=== PATIENT | female | born 1940 | race Caucasian/White ===

== ENCOUNTER 2019-02-21 13:05 | Outpatient (RCR) | payer MEDICARE, OTHER, SELFPAY | END 2019-02-22 00:01 | LOC: SR3 13:05 | PROVIDERS: Family Provider Nurse Practitioner Family; Visit Provider Internal Medicine | DX: I63.9 Cerebral infarction, unspecified (principal) | CPT/HCPCS: 97161; 97165; 97530 ==

== ENCOUNTER 2019-02-23 12:41 | Outpatient (RCR) | payer MEDICARE, SELFPAY | END 2019-03-25 23:59 | disposition home or self-care (01) | LOC: SR3 12:41 | PROVIDERS: Family Provider Nurse Practitioner Family; PCP Nurse Practitioner Family; Visit Provider Internal Medicine | DX: R26.89 Other abnormalities of gait and mobility (principal) | CPT/HCPCS: 92507; 92523; 97032; 97110; 97112; 97116; 97164 ==

== ENCOUNTER 2019-03-26 06:00 | Outpatient (RCR) | payer MEDICARE, SELFPAY | END 2019-04-23 23:59 | disposition home or self-care (01) | LOC: SR3 06:00 | PROVIDERS: Family Provider Nurse Practitioner Family; PCP Nurse Practitioner Family; Visit Provider Internal Medicine | DX: I63.9 Cerebral infarction, unspecified (principal); R26.89 Other abnormalities of gait and mobility | CPT/HCPCS: 92507; 97032; 97110; 97112; 97116 ==

== ENCOUNTER 2019-04-24 06:00 | Outpatient (RCR) | payer MEDICARE, OTHER, SELFPAY | END 2019-05-24 23:59 | disposition home or self-care (01) | LOC: SR3 06:00 | PROVIDERS: Family Provider Nurse Practitioner Family; PCP Nurse Practitioner Family; Visit Provider Internal Medicine | DX: I63.9 Cerebral infarction, unspecified (principal) | CPT/HCPCS: 92507 ==

== ENCOUNTER 2019-05-25 06:00 | Outpatient (RCR) | payer MEDICARE, SELFPAY | END 2019-06-23 23:59 | disposition home or self-care (01) | LOC: GST 06:00 | PROVIDERS: Family Provider Nurse Practitioner Family; PCP Nurse Practitioner Family; Visit Provider Internal Medicine | DX: I63.9 Cerebral infarction, unspecified (principal); R47.02 Dysphasia | CPT/HCPCS: 92507 ==

== ENCOUNTER 2019-06-14 09:03 | Outpatient (CLI) | payer OTHER, SELFPAY ==
--- NOTE | 2019-06-14 09:14 | MR_ITS ---
WS: [id number] MRI CERVICAL SPINE HISTORY: CERVICALGIA COMPARISON: None available. Posterior cervical alignment is normal with increase in the cervical lordosis. No marrow edema or fra cture. Disc desiccation is mild throughout the cervical spine. Signal within the cord is normal. Volume loss in the posterior fossa. Ventricles are dilated. Craniocervical junction, C1 and C2 relationship, odontoid process and soft tissues are normal. C2-C3: Normal. C3-C4: Normal. C4-C5: Mild osteophytic ridging and facet arthritis. Small foraminal osteophytes resulting in mild bi lateral foraminal stenosis. There is edema in the LEFT facet joint and periarticular soft tissues. C5-C6: Mild osteophytic ridging and facet arthritis. No central stenosis. C6-C7: Facet joint arthritis and mild foraminal narrowing. No significant stenosis. C7-T1: No significant stenosis. Paraspinal soft tissue are normal. MR/MR cervical spin wo con* [id number] IMPRESSION: 1. Moderate increase in cervical lordosis. 2. Mild multilevel spondylosis and degenerative disc disease. 3. Bilateral foraminal stenosis at C4-5 and C6-7. 4. Small amount of edema in the LEFT facet joint at C4-5 is probably due to [place] inflammatory arthritis and synovitis.
== END 2019-06-14 09:04 | disposition home or self-care (01) ==
LOC: RADWPI 09:09
PROVIDERS: Family Provider Nurse Practitioner Family; PCP Nurse Practitioner Family; Visit Provider Nurse Practitioner
DX: M48.02 Spinal stenosis, cervical region (principal); M47.812 Spondylosis without myelopathy or radiculopathy, cervical region; M50.30 Other cervical disc degeneration, unspecified cervical region; R60.9 Edema, unspecified
CPT/HCPCS: 72141

== ENCOUNTER → 2019-06-20 09:34 | Outpatient (BNVA) | payer OTHER, SELFPAY | PROVIDERS: Family Provider Nurse Practitioner Family; PCP Nurse Practitioner Family; Referring Provider Nurse Practitioner; Visit Provider Nurse Practitioner | DX: Z86.73 Personal history of transient ischemic attack (TIA), and cerebral infarction without residual deficits (principal); R13.10 Dysphagia, unspecified; M54.2 Cervicalgia | CPT/HCPCS: 99205; 99999 ==

== ENCOUNTER → 2019-06-22 09:30 | Outpatient (BNVA) | payer OTHER, SELFPAY | PROVIDERS: Family Provider Nurse Practitioner Family; PCP Nurse Practitioner Family; Referring Provider Nurse Practitioner; Visit Provider Nurse Practitioner | DX: I63.9 Cerebral infarction, unspecified (principal); M54.2 Cervicalgia; R13.10 Dysphagia, unspecified | CPT/HCPCS: 80061; 82607; 84443; 85025 ==

== ENCOUNTER 2019-06-24 06:00 | Outpatient (RCR) | payer MEDICARE, SELFPAY | END 2019-07-24 23:59 | disposition home or self-care (01) | LOC: GST 06:00 | PROVIDERS: Family Provider Nurse Practitioner Family; PCP Nurse Practitioner Family; Referring Provider Nurse Practitioner; Visit Provider Nurse Practitioner | DX: R47.02 Dysphasia (principal) | CPT/HCPCS: 92507; 92523 ==

== ENCOUNTER 2019-06-29 10:21 | Outpatient (RCR) | payer MEDICARE, SELFPAY | END 2019-07-24 23:59 | disposition home or self-care (01) | LOC: SPT 10:21 | PROVIDERS: Family Provider Nurse Practitioner Family; PCP Nurse Practitioner; Referring Provider Nurse Practitioner; Visit Provider Nurse Practitioner | DX: I63.9 Cerebral infarction, unspecified (principal) | CPT/HCPCS: 97110; 97162; 97530 ==

== ENCOUNTER 2019-07-13 13:29 | Outpatient (CLI) | payer MEDICARE, SELFPAY ==
--- NOTE | 2019-07-13 14:15 | USCV_ITS ---
Sara Cortez Age: 78 Gender: F : 1940 Exam Date: 07/13/2019 13:58 Ordering Phys: Noah Xiao MSN AGACNP-BC Technologist: Martha Suero Exam Location: [facility] – [place] Indication: CVA Risk Factors: Unknown Previous Vascular Surgery: PRIOR CVA Right Brachial BP: / Left Brachial BP: / Right Left Velocity (cm/s) Spectral Plaque Velocity (cm/s) Spectral Plaque Syst/Diast Broadening Syst/Diast Broadening 88.20/ 19.80 Prox CCA 102.90/ 15.80 100.30/23.20 Mid CCA 47.00 / 10.30 44.00/ 9.90 Distal CCA 55.00 / 10.90 39.30/ 13.90 Prox ICA 52.10 / 12.60 48.70/ 14.10 Mid ICA 62.50 / 18.30 80.70/ 24.70 Distal ICA 52.40 / 17.50 105.10 ECA 68.20 0.80 ICA/CCA 1.33 Antegrade Vertebral Antegrade 35.60/ 9.40 cm/s 29.30/ 8.50 cm/s Tri Subclavian Tri 72.00 85.70 CONCLUSIONS Right ICA stenosis <50%. Mild atheromatous plaque right carotid bulb/ICA. Left ICA stenosis <50%. Mild atheromatous plaque left carotid bulb/ICA. Normal antegrade Doppler flow noted in the right vertebral artery. Normal antegrade Doppler flow noted in the left vertebral artery. Brayan De La O MD (Electronically Signed) Final Date: 14 Jul 2019 11:54 S
--- NOTE | 2019-07-13 15:00 | USCV_ITS ---
Sara Cortez Age: 78 Gender: F : 1940 Exam Date: 07/13/2019 13:43 Ordering Phys: Noah XiaoP MSN AGACNP-BC Technologist: Martha Suero [place] [facility] [place]: CVA BP: 121 / 67 HR: 82 Rhythm: Sinus Technical Quality: Adequate MEASUREMENTS (Male / Female) Normal Values 2D ECHO LV Diastolic Diameter PLAX 3.7 cm 4.2 - 5.9 / 3.9 - 5.3 cm LV Systolic Diameter PLAX 2.9 cm LV Chamber Size 3.1 cm IVS Diastolic Thickness 1.2 cm 0.6 - 1.0 / 0.6 - 0.9 cm IVS Systolic Thickness 1.6 cm LVPW Diastolic Thickness 1.1 cm 0.6 - 1.0 / 0.6 - 0.9 cm LVPW Systolic Thickness 1.4 cm RV Chamber Size 2.3 cm LVOT Diameter 2.1 cm LV Ejection Fraction 2D Teich 45.4 % LV Ejection Fraction MOD 2C 25.7 % LV Ejection Fraction 2C AL 24.5 % LA Diameter 2.9 cm LA Width 2.8 cm LA Height 4.4 cm RA Width 3.0 cm RA Height 3.5 cm Aorta at Sinotubular Diameter 3.7 cm M-MODE LV Diastolic Diameter MM 3.3 cm 4.2 - 5.9 / 3.9 - 5.3 cm LV Systolic Diameter MM 2.5 cm LV Ejection Fraction MM Teich 45.9 % IVS Diastolic Thickness MM 0.9 cm 0.6 - 1.0 / 0.6 - 0.9 cm IVS Systolic Thickness MM 1.0 cm LVPW Diastolic Thickness MM 1.0 cm 0.6 - 1.0 / 0.6 - 0.9 cm LVPW Systolic Thickness MM 1.3 cm RV Diastolic Diameter MM 1.2 cm Aortic Annulus Diameter 3.5 cm LA Ao Ratio MM 0.8 MV E Point Septal Separation 0.6 cm DOPPLER AV Peak Velocity 104.0 cm/s LVOT Peak Velocity 88.0 cm/s AV Area Cont Eq vti 3.1 cm squared AV Area Cont Eq pk 2.9 cm squared MV Area PHT 4.5 cm squared Mitral E to A Ratio 0.7 MV E' Velocity 6.0 cm/s Mitral E to MV E' Ratio 8.2 Mitral E to LV E' Lateral Ratio 9.4 Mitral E to LV E' Septal Ratio 7.4 TR Peak Velocity 189.9 cm/s TR Peak Gradient 14.4 mmHg TR Mean Velocity 121.9 cm/s TR Mean Gradient 7.0 mmHg TR Velocity Time Integral 59.4 cm TV Peak E Velocity 54.0 cm/s Right Atrial Pressure 3.0 mmHg Pulmonary Artery Systolic Pressu 17.4 mmHg PV Peak Velocity 55.0 cm/s RV Acceleration Time 0.2 s RV Ejection Time 0.3 s RV AcT/ET 0.5 FINDINGS Left Ventricle Normal left ventricular cavity size. Normal left ventricular systolic function. No regional wall motion abnormalities. Left ventricular ejection fraction is estimated at 60 %. Grade I/IV diastolic dysfunction (abnormal relaxation filling pattern), normal to mildly elevated filling pressures. Right Ventricle The right ventricle is normal in size and function. Right Atrium The right atrium is normal in size. Left Atrium The left atrium is normal in size. Mitral Valve Structurally normal mitral valve without significant stenosis or prolapse. There is no mitral regurgitation. Aortic Valve Structurally normal aortic valve without significant sclerosis or stenosis. There is no aortic regurgitation. Tricuspid Valve Structurally normal tricuspid valve without significant stenosis or regurgitation. Pulmonary artery systolic pressure is normal. Pulmonic Valve Structurally normal pulmonic valve without significant stenosis. There is no pulmonic regurgitation. Pericardium Normal pericardium without effusion. Aorta Normal ascending aorta dimension. CONCLUSIONS 1-Normal left ventricular cavity size. Normal left ventricular systolic function. No regional wall motion abnormalities. Left ventricular ejection fraction is estimated at 60 %. Grade I/IV diastolic dysfunction (abnormal relaxation filling pattern), normal to mildly elevated filling pressures. 2-No significant valve abnormalities. 3-There is no pericardial effusion. 4-Pulmonary artery systolic pressure is within normal limits. 5-Right atrial pressure is around 5 mm of mercury. 6-There are no prior echocardiogram studies to compare. Albaro Gordillo MD (Electronically Signed) Final Date: 13 Jul 2019 18:38 S
== END 2019-07-13 13:30 | disposition home or self-care (01) ==
LOC: RAD 13:30
PROVIDERS: PCP Nurse Practitioner; Visit Provider Nurse Practitioner
DX: Z86.73 Personal history of transient ischemic attack (TIA), and cerebral infarction without residual deficits (principal); I65.23 Occlusion and stenosis of bilateral carotid arteries
CPT/HCPCS: 93306; 93880

== ENCOUNTER 2019-07-25 06:00 | Outpatient (RCR) | payer MEDICARE, SELFPAY | END 2019-08-23 23:59 | disposition home or self-care (01) | LOC: SPT 06:00 | PROVIDERS: PCP Nurse Practitioner; Visit Provider Nurse Practitioner | DX: R47.02 Dysphasia (principal) | CPT/HCPCS: 97110; 97530 ==

== ENCOUNTER 2019-07-25 06:00 | Outpatient (RCR) | payer MEDICARE, SELFPAY | END 2019-08-23 23:59 | disposition home or self-care (01) | LOC: GST 06:00 | PROVIDERS: PCP Nurse Practitioner; Visit Provider Nurse Practitioner | DX: R47.02 Dysphasia (principal) | CPT/HCPCS: 92507 ==

== ENCOUNTER 2019-08-24 04:54 | Outpatient (RCR) | payer MEDICARE, SELFPAY | END 2019-09-23 23:59 | disposition home or self-care (01) | LOC: GST 04:54 | PROVIDERS: PCP Nurse Practitioner; Visit Provider Nurse Practitioner | DX: I63.9 Cerebral infarction, unspecified (principal); R47.02 Dysphasia | CPT/HCPCS: 92507 ==

== ENCOUNTER → 2020-01-09 09:26 | Outpatient (BNVA) | payer MEDICARE, SELFPAY | PROVIDERS: PCP Nurse Practitioner; Visit Provider Nurse Practitioner Family | DX: E78.5 Hyperlipidemia, unspecified (principal) | CPT/HCPCS: 80061 ==

== ENCOUNTER → 2020-03-28 13:43 | Outpatient (BNVA) | payer MEDICARE, SELFPAY | PROVIDERS: PCP Nurse Practitioner; Visit Provider Nurse Practitioner Family | DX: R42 Dizziness and giddiness (principal) | CPT/HCPCS: 36416; 82962 ==

== ENCOUNTER → 2020-04-20 09:05 | Outpatient (BNVA) | payer MEDICARE, SELFPAY | PROVIDERS: PCP Nurse Practitioner; Visit Provider Internal Medicine Cardiovascular Disease | DX: E78.5 Hyperlipidemia, unspecified (principal) | CPT/HCPCS: 80061 ==

== ENCOUNTER → 2020-05-24 12:05 | Outpatient (BNVA) | payer MEDICARE, SELFPAY | PROVIDERS: PCP Nurse Practitioner; Referring Provider Nurse Practitioner; Visit Provider Specialist | DX: G24.3 Spasmodic torticollis (principal) | CPT/HCPCS: 64616; 99213; J0585 ==

== ENCOUNTER → 2020-06-07 11:18 | Outpatient (BNVA) | payer MEDICARE, SELFPAY | PROVIDERS: PCP Nurse Practitioner; Referring Provider Nurse Practitioner; Visit Provider Specialist | DX: Z96.649 Presence of unspecified artificial hip joint (principal); Z96.641 Presence of right artificial hip joint; M16.12 Unilateral primary osteoarthritis, left hip | CPT/HCPCS: 73522; 73523 ==

== ENCOUNTER → 2020-07-12 00:01 | Outpatient (BNVA) | payer MEDICARE, SELFPAY | PROVIDERS: PCP Nurse Practitioner; Visit Provider Nurse Practitioner Family | DX: E03.9 Hypothyroidism, unspecified (principal); I10 Essential (primary) hypertension; Z68.26 Body mass index [BMI] 26.0-26.9, adult | CPT/HCPCS: 80053; 84443 ==

== ENCOUNTER → 2020-08-16 11:16 | Outpatient (BNVA) | payer MEDICARE, SELFPAY | PROVIDERS: PCP Nurse Practitioner; Visit Provider Specialist | DX: G24.3 Spasmodic torticollis (principal); M54.2 Cervicalgia; R26.9 Unspecified abnormalities of gait and mobility | CPT/HCPCS: 64616; 99214; J0585 ==

== ENCOUNTER 2020-09-05 10:51 | Outpatient (CLI) | payer MEDICARE, SELFPAY ==
--- NOTE | 2020-09-05 11:45 | MR_ITS ---
WS: [id number] MRI CERVICAL SPINE NONCONTRAST TECHNIQUE: Sagittal T1, T2 and STIR imaging. Axial T2, gradient, and fiesta imaging. CLINICAL INFORMATION: M54.2 - Cervicalgia COMPARISON: June 14, 2019 FINDINGS: Slight exaggeration the normal cervical lordosis. Mild cervical curve. Cord signal is normal. No high -grade central canal narrowing. C2-C3: Moderate facet arthropathy. Spinal canal is patent. Mild right and no significant left foramin al narrowing. C3-C4: Moderate facet arthropathy. Mild bilateral bony foraminal narrowing. Spinal canal is patent. C4-C5: Slight anterolisthesis. Moderate facet arthropathy. Mild to moderate bilateral bony foraminal narrowing. Spinal canal is patent. C5-C6: Mild osteophytic ridging. Mild left and no significant right foraminal narrowing. Moderate fac et arthropathy. C6-C7: Mild disc bulging and osteophytic ridging. Mild bilateral bony foraminal narrowing. Spinal can al is patent. C7-T1: Grade 1 anterolisthesis C7 on T1. Mild right greater than left bony foraminal narrowing. Spina l canal is patent. Visualized upper thoracic cord is normal. Previously described edema within the left C4-5 facets appe ars improved. Visualized brain stem structures: Normal. Prevertebral soft tissues: Normal. MR/MR cervical spin wo con* [id number] IMPRESSION: 1. Improvement in the previously described edema within the left C4-5 facets. 2. Otherwise no significant interval changes. 3. Slight anterolisthesis C4 on C5 and C7 on T1 is unchanged. 4. No significant central canal stenosis. Cord signal is normal. 5. Multilevel mild to moderate bony foraminal narrowing more prominent at bila teral C4-C5, left C5-C6, bilateral C6-7, and right C7-T1. 6. Multilevel moderate facet arthropathy throughout the cervical spine.
== END 2020-09-05 10:52 | disposition home or self-care (01) ==
LOC: RADSHAW 10:57
PROVIDERS: PCP Nurse Practitioner; Visit Provider Specialist
DX: M54.2 Cervicalgia (principal); M47.812 Spondylosis without myelopathy or radiculopathy, cervical region; R60.0 Localized edema
CPT/HCPCS: 72141

== ENCOUNTER 2020-09-12 06:00 | Outpatient (RCR) | payer MEDICARE, SELFPAY | END 2020-09-22 23:59 | disposition home or self-care (01) | LOC: GPT 06:00 | PROVIDERS: PCP Nurse Practitioner; Referring Provider Nurse Practitioner; Visit Provider Nurse Practitioner | DX: R26.89 Other abnormalities of gait and mobility (principal) | CPT/HCPCS: 97032; 97110; 97161; 97530; G0283 ==

== ENCOUNTER 2020-09-23 06:00 | Outpatient (RCR) | payer MEDICARE, SELFPAY | END 2020-10-23 23:59 | disposition home or self-care (01) | LOC: GPT 06:00 | PROVIDERS: PCP Nurse Practitioner; Referring Provider Nurse Practitioner; Visit Provider Nurse Practitioner | DX: R53.1 Weakness (principal); R26.89 Other abnormalities of gait and mobility | CPT/HCPCS: 97110; 97112; 97530 ==

== ENCOUNTER → 2020-10-30 09:18 | Outpatient (BNVA) | payer MEDICARE, SELFPAY | PROVIDERS: PCP Nurse Practitioner; Visit Provider Internal Medicine Cardiovascular Disease | DX: E78.5 Hyperlipidemia, unspecified (principal) | CPT/HCPCS: 80061 ==

== ENCOUNTER → 2020-11-15 10:22 | Outpatient (BNVA) | payer MEDICARE, SELFPAY | PROVIDERS: PCP Nurse Practitioner; Visit Provider Specialist | DX: G24.3 Spasmodic torticollis (principal); M54.2 Cervicalgia; R26.9 Unspecified abnormalities of gait and mobility; I69.398 Other sequelae of cerebral infarction; Z87.891 Personal history of nicotine dependence | CPT/HCPCS: 64616; 96116; 99213; J0585 ==

== ENCOUNTER → 2021-02-07 11:28 | Outpatient (BNVA) | payer MEDICARE, SELFPAY | PROVIDERS: PCP Nurse Practitioner; Visit Provider Specialist | DX: G24.3 Spasmodic torticollis (principal) | CPT/HCPCS: 64616; J0585 ==

== ENCOUNTER 2021-02-26 10:31 | Outpatient (CLI) | payer MEDICARE, SELFPAY ==
--- NOTE | 2021-02-26 11:30 | FL_ITS ---
WS: [id number] MODIFIED BARIUM SWALLOW HISTORY: R13.10 - Dysphagia, unspecified FLUOROSCOPY TIME: 1.8 minutes. Modified barium swallow was performed by the speech pathologist. Fluoroscopy was provided with the pa tient in a lateral projection. Multiple food consistencies were provided. Patient is held in marked forward flexion. During swallowing patient was able to extend the chin. The re are numerous episodes of laryngeal penetration and a small amount of aspiration especially with th e thinner liquids. Spontaneous cough was elicited which did clear some of the barium. There is also c oating within the vallecula and piriform sinuses after swallowing. No barium tablet was attempted nor solid food. FL/FL barium swallow modifd [id number] IMPRESSION: 1. Patient at high risk for laryngeal penetration and aspiration. Several epis odes of minor aspiration noted during this examination with poor clearing of ba rium. Please see speech therapist report also for recommendations.
== END 2021-02-26 10:32 | disposition home or self-care (01) ==
LOC: RAD 10:38
PROVIDERS: PCP Nurse Practitioner; Visit Provider Specialist
DX: R13.10 Dysphagia, unspecified (principal); K22.2 Esophageal obstruction; T17.308A Unspecified foreign body in larynx causing other injury, initial encounter; X58.XXXA Exposure to other specified factors, initial encounter
CPT/HCPCS: 74230; 92611

== ENCOUNTER 2021-08-12 06:00 | Outpatient (RCR) | payer MEDICARE, SELFPAY | END 2021-08-22 23:59 | disposition home or self-care (01) | LOC: GPT 06:00 | PROVIDERS: PCP Nurse Practitioner; Referring Provider Physician Assistant; Visit Provider Physician Assistant | DX: Z47.89 Encounter for other orthopedic aftercare (principal) | CPT/HCPCS: 97110; 97162 ==

== ENCOUNTER 2021-08-23 06:00 | Outpatient (RCR) | payer MEDICARE, SELFPAY | END 2021-09-22 23:59 | disposition home or self-care (01) | LOC: GPT 06:00 | PROVIDERS: PCP Nurse Practitioner; Referring Provider Physician Assistant; Visit Provider Physician Assistant | DX: R53.1 Weakness (principal) | CPT/HCPCS: 97110; 97112; 97530 ==

== ENCOUNTER 2021-09-23 06:00 | Outpatient (RCR) | payer MEDICARE, SELFPAY | END 2021-10-03 23:59 | disposition home or self-care (01) | LOC: GPT 06:00 | PROVIDERS: PCP Nurse Practitioner; Referring Provider Physician Assistant; Visit Provider Physician Assistant | DX: Z96.642 Presence of left artificial hip joint (principal) | CPT/HCPCS: 97110; 97112; 97164; 97535 ==

== ENCOUNTER 2022-05-05 06:00 | Outpatient (RCR) | payer MEDICARE, SELFPAY | END 2022-05-23 10:56 | disposition home or self-care (01) | LOC: GPT 06:00 | PROVIDERS: PCP Nurse Practitioner; Visit Provider Orthopaedic Surgery | DX: Z47.89 Encounter for other orthopedic aftercare (principal) | CPT/HCPCS: 97110; 97112; 97140; 97161; 97530; 97535 ==

== ENCOUNTER → 2022-06-09 10:04 | Outpatient (BNVA) | payer MEDICARE, SELFPAY | PROVIDERS: PCP Nurse Practitioner; Visit Provider Podiatrist Foot & Ankle Surgery | DX: I73.9 Peripheral vascular disease, unspecified (principal); Q82.8 Other specified congenital malformations of skin; M20.41 Other hammer toe(s) (acquired), right foot; M20.42 Other hammer toe(s) (acquired), left foot | CPT/HCPCS: 17110; 99203 ==

== ENCOUNTER 2022-06-23 06:00 | Outpatient (RCR) | payer MEDICARE, SELFPAY | END 2022-07-23 23:59 | disposition home or self-care (01) | LOC: GPT 06:00 | PROVIDERS: Visit Provider Physician Assistant | DX: M25.559 Pain in unspecified hip (principal) | CPT/HCPCS: 97110; 97140; 97161; 97530; 97535 ==

== ENCOUNTER → 2022-07-07 12:48 | Outpatient (BNVA) | payer MEDICARE, SELFPAY | PROVIDERS: Visit Provider Podiatrist Foot & Ankle Surgery | DX: M20.41 Other hammer toe(s) (acquired), right foot (principal); M20.42 Other hammer toe(s) (acquired), left foot; Q82.8 Other specified congenital malformations of skin | CPT/HCPCS: 99213 ==

== ENCOUNTER 2022-08-03 07:43 | Outpatient (RCR) | payer MEDICARE, SELFPAY | END 2022-08-22 23:59 | disposition home or self-care (01) | LOC: GPT 07:43 | PROVIDERS: Visit Provider Physician Assistant | DX: M25.559 Pain in unspecified hip (principal) | CPT/HCPCS: 97110; 97140; 97164; 97530; 97535 ==

== ENCOUNTER 2022-08-23 06:00 | Outpatient (RCR) | payer MEDICARE, SELFPAY | END 2022-09-18 23:59 | disposition home or self-care (01) | LOC: GPT 06:00 | PROVIDERS: Visit Provider Physician Assistant | DX: M25.559 Pain in unspecified hip (principal) | CPT/HCPCS: 97110; 97112; 97140; 97530 ==

== ENCOUNTER → 2023-02-02 14:01 | Outpatient (BNVA) | payer MEDICARE, SELFPAY | PROVIDERS: Visit Provider Podiatrist Foot & Ankle Surgery | DX: L60.3 Nail dystrophy (principal); Q82.8 Other specified congenital malformations of skin; I73.9 Peripheral vascular disease, unspecified | CPT/HCPCS: 11721; 17110 ==

== ENCOUNTER → 2023-02-12 14:27 | Outpatient (BNVA) | payer MEDICARE, SELFPAY | PROVIDERS: PCP Nurse Practitioner; Visit Provider Podiatrist Foot & Ankle Surgery | DX: L03.116 Cellulitis of left lower limb (principal) | CPT/HCPCS: 99213 ==

== ENCOUNTER → 2023-05-06 12:39 | Outpatient (BNVA) | payer MEDICARE, SELFPAY | PROVIDERS: PCP Nurse Practitioner; Visit Provider Podiatrist Foot & Ankle Surgery | DX: L60.8 Other nail disorders (principal); L60.3 Nail dystrophy; I73.9 Peripheral vascular disease, unspecified; M21.611 Bunion of right foot; M21.612 Bunion of left foot; M79.671 Pain in right foot; M79.672 Pain in left foot | CPT/HCPCS: 11721; 99213 ==

== ENCOUNTER → 2023-07-14 12:28 | Outpatient (BNVA) | payer MEDICARE, SELFPAY | PROVIDERS: PCP Nurse Practitioner; Visit Provider Podiatrist Foot & Ankle Surgery | DX: L60.8 Other nail disorders (principal); L60.3 Nail dystrophy; I73.9 Peripheral vascular disease, unspecified | CPT/HCPCS: 11721 ==

== ENCOUNTER → 2023-11-03 12:30 | Outpatient (BNVA) | payer MEDICARE, SELFPAY | PROVIDERS: PCP Nurse Practitioner; Visit Provider Podiatrist Foot & Ankle Surgery | DX: L60.8 Other nail disorders (principal); L60.3 Nail dystrophy; I73.9 Peripheral vascular disease, unspecified | CPT/HCPCS: 11721 ==

== ENCOUNTER → 2024-01-05 12:36 | Outpatient (BNVA) | payer MEDICARE, SELFPAY | PROVIDERS: PCP Nurse Practitioner; Visit Provider Podiatrist Foot & Ankle Surgery | DX: L60.8 Other nail disorders (principal); L60.3 Nail dystrophy; I73.9 Peripheral vascular disease, unspecified; L84 Corns and callosities | CPT/HCPCS: 11056; 11721 ==

== ENCOUNTER → 2024-03-08 12:30 | Outpatient (BNVA) | payer MEDICARE, SELFPAY | PROVIDERS: PCP Nurse Practitioner; Visit Provider Podiatrist Foot & Ankle Surgery | DX: L60.8 Other nail disorders (principal); L60.3 Nail dystrophy; I73.9 Peripheral vascular disease, unspecified; L84 Corns and callosities | CPT/HCPCS: 11056; 11721 ==

== ENCOUNTER → 2024-05-10 12:31 | Outpatient (BNVA) | payer MEDICARE, SELFPAY | PROVIDERS: PCP Nurse Practitioner; Visit Provider Podiatrist Foot & Ankle Surgery | DX: I73.9 Peripheral vascular disease, unspecified (principal); L60.8 Other nail disorders; L84 Corns and callosities; L60.3 Nail dystrophy | CPT/HCPCS: 11056; 11721 ==

== ENCOUNTER 2025-02-13 13:47 | Outpatient (CLI) | payer MEDICARE, SELFPAY ==
--- NOTE | 2025-02-13 14:00 | CTR_ITS ---
PROCEDURE INFORMATION: Exam: CT Neck Without Contrast Exam date and time: 02/13/2025 2:27 PM Age: 84 years old Clinical indication: Other: Chronic pharyngitis; Prior surgery; Surgery date: 6+ months; Surgery type: Tonsil; Hoarseness, difficulty swallowing and eating x 10 years, feels like throat is closing TECHNIQUE: Imaging protocol: Computed tomography of the neck without contrast. Radiation optimization: All CT scans at this facility use at least one of these dose optimization techniques: automated exposure control; mA and/or kV adjustment per patient size (includes targeted exams where dose is matched to clinical indication); or iterative reconstruction. COMPARISON: MR cervical spin wo con* [id number] 09/05/2020 12:16 PM RADIATION DOSE METRICS: Total DLP (mGy-cm): 142.96 FINDINGS: Salivary glands: Normal. Glands are normal in size. Pharynx: Unremarkable. No significant tonsillar enlargement. Larynx: Unremarkable. Epiglottis is normal. Thyroid: Normal. No enlarged or calcified nodules. Trachea: Visualized trachea is unremarkable. Lungs: Unremarkable as visualized. Lymph nodes: Unremarkable. No lymphadenopathy. Bones/joints: Moderate degenerative changes of the spine. Partially visualized degenerative changes of the bilateral glenohumeral and acromioclavicular joints. Soft tissues: Unremarkable. No significant soft tissue swelling. CT/CT neck wo con [id number] IMPRESSION: No acute findings.
== END 2025-02-13 13:48 | disposition home or self-care (01) ==
PROVIDERS: PCP Family Medicine; Visit Provider Family Medicine
DX: J31.2 Chronic pharyngitis (principal); R93.7 Abnormal findings on diagnostic imaging of other parts of musculoskeletal system
CPT/HCPCS: 70490